=== PATIENT | female | born 1975 | race Caucasian/White ===

== ENCOUNTER → 2017-11-27 09:11 | Outpatient (CLI) | payer OTHER ==
--- NOTE | ~2017-11-27 | EC ---
PATIENT:EMMA CHAUDHARY DATE OF SERVICE: 11/27/17 SEX: F MEDICAL RECORD: [id number] DATE OF : [birth year] LOCATION:[facility] AGE OF PATIENT: 42 ADMISSION DATE: 11/27/17 REFERRING PHYSICIAN: INTERPRETING PHYSICIAN: DONYA NAIK MD ECHOCARDIOGRAM REPORT ECHO CHARGES 4 ECHO COMPLETE CLINICAL DIAGNOSIS: CP/PALPITATIONS ECHOCARDIOGRAPHIC MEASUREMENTS (adult normal given) AC root (d.<3.7cm) 3.4 cm LV Septum d (<1.2 cm> 1.5 cm Valve Excursion 2.0 cm LV Septum (systole) 2.0 cm Left Atria (s.<4.0cm> 3.4 cm LVPW d(<1.2cm) 1.3 cm RV (d.<2.3cm) 2.2 cm LVPW (sytole) 2.0 cm LV diastole(<5.6CM) 4.8 cm MV E-F(>70mm/sec) cm LV systole 2.7 cm LVOT Diameter 1.8 cm MV exc.(>10mm) cm Est.ejection fraction (50-75%) % Pericardial Effusion N DOPPLER: LVIT cm/sec A 77.0 cm/sec E 105 cm/sec LA cm/sec RVSP 29.0 mmHg LVOT 134 cm/sec AOP1/2T m/s Asc. Ao 141 cm/sec RVOT 86.0 cm/sec RA cm/sec PA 101 cm/sec AV Gradient Peak 8.0 mmHg AV Mean 4.5 mmHg AV Area 2.0 cm MV Gradient Peak 4.7 mmHg MV Mean 2.2 mmHg MV Area cm COMMENTS: Payroll Technician: Jaziel MÁRQUEZ BILOXI Clinical Specialist: 4 Dr. Naik TAPE# PACS DATE OF SERVICE: 11/27/2017 PROCEDURE: Transthoracic echocardiogram. FINDINGS: 1. There is [id number] concentric left ventricular hypertrophy with inflow characteristics that are normal. Ejection fraction of 60%. 2. The left atrium is normal size, normal function. 3. The aortic valve is normal. 4. The mitral valve is normal. ECHOCARDIOGRAM REPORT [id number] EMMA CHAUDHARY 5. The tricuspid valve has trace tricuspid regurgitation. 6. The pericardium is normal. 6. The pulmonic valve is trace pulmonic insufficiency. 7. The right atrium is normal size, normal function. 8. The right ventricle is normal size, normal function. CONCLUSIONS: The patient has evidence of left ventricular hypertrophy, otherwise normal echocardiogram. TRANSINT:[id number] Voice Confirmation ID: [id number] DOCUMENT ID: [id number] DONYA NAIK MD at 1610 CC: [id number] DICTATION DATE: 11/28/17 0947 GENERAL ASSEMBLER INSTALLER: 11/28/17 1120 [facility] CLI 11/27/17 [id number] [place] [address]
== END | disposition home or self-care (01) ==
LOC: D.ECHO 11-20 13:00
DX: R07.9 Chest pain, unspecified (principal); R00.2 Palpitations

== ENCOUNTER 2017-12-18 17:06 | Emergency (ER) | payer OTHER | END 2017-12-18 17:27 | disposition home or self-care (01) | LOC: D.ER 17:06 | DX: R11.2 Nausea with vomiting, unspecified (principal) ==

== ENCOUNTER 2020-05-26 22:17 | Emergency (ER) | payer SELFPAY ==
[~2020-05-26] VITALS: Ht 165.1 cm; Wt 106.8 kg
[2020-05-26 22:43] VITALS: Ht 165.1 cm; Wt 106.8 kg
[2020-05-26] MEDS ORDERED: HYDROXYCHLOROQ200 MG PO (22:44)
[2020-05-26] MEDS ORDERED: DECADRON4 MG PO (22:45)
[2020-05-26] MEDS ORDERED: BACLOFEN20 M1 PO (22:45)
[2020-05-26] MEDS ORDERED: NORVASC5 MG PO (22:46)
[2020-05-26] MEDS ORDERED: PAMELOR 25 MG C25 MG PO (22:46)
[2020-05-26 23:11] LABS: BASOPHILS 0.1 % (0-2); EOSINOPHILS 0.7 % (0-7); HEMATOCRIT 41.8 % (36.0-48.0); HEMOGLOBIN 14.2 g/dL (12-16); IMMATURE GRANULOCYTES 2.7 % (0-5); LYMPHOCYTES 20.2 % (15-50); MCV 91.3 fL (80.0-100.0); MEAN PLATELET VOLUME 10.3 fL (7.4-10.4); MONOCYTES 6.3 % (2-11); PLATELET COUNT 179 10x3/uL (130-400); RBC 4.58 10x6/uL (4.00-5.40); RDW 14.5 % (11.5-14.5); WBC 11.5 10x3/uL (4.8-10.8)
[2020-05-26 23:22] LABS: CALC OSMOLALITY 278 mosm/kg (275-300); CALCIUM 9.3 mg/dL (8.5-10.1); CARBON DIOXIDE 31.2 mmol/L (21.0-32.0); CHLORIDE - SERUM 101 mmol/L (98-107); CREATININE - SERUM 1.4 mg/dL (0.6-1.3); GLUCOSE 105 mg/dL (74-106); POTASSIUM - SERUM 3.8 mmol/L (3.5-5.1); SODIUM 139 mmol/L (136-145); UREA NITROGEN 16 mg/dL (7-18); eGFR NON AFRICAN AMERICAN 43 mL/min (90-120)
[2020-05-26 23:27] LABS: APTT 50.6 SECONDS (22.8-39.4); INR 0.96 (0.85-1.17); PROTIME 12.7 SECONDS (11.6-15.0)
[2020-05-26 23:38] LABS: ALBUMIN 3.6 g/dL (3.4-5.0); ALKALINE PHOSPHATASE 101 U/L (30-120); ALT (SGPT) 32 U/L (10-68); BILIRUBIN - TOTAL 0.51 mg/dL (0.2-1.3); CKMB 0.4 U/L (0.0-3.6); CREATINE KINASE 70 UL (21-215); MAGNESIUM - SERUM 2.2 mg/dL (1.8-2.4); PROTEIN - SERUM 8.3 g/dL (6.4-8.2); TROPONIN-I < 0.017 ng/mL (0.000-0.060)
[2020-05-27] MEDS ORDERED: TOPAMAX50 MG PO (01:18)
[2020-05-27 01:53] VITALS: BP 170/88
== END 2020-05-27 01:48 | disposition home or self-care (01) ==
LOC: D.ER 22:17
PROVIDERS: Family Medicine
DX: G43.809 Other migraine, not intractable, without status migrainosus (principal); I10 Essential (primary) hypertension; G62.9 Polyneuropathy, unspecified; K21.9 Gastro-esophageal reflux disease without esophagitis; Z72.0 Tobacco use